=== PATIENT | female | born 1945 | race Caucasian/White ===

== ENCOUNTER 2021-04-14 17:55 | Emergency (ER) | payer MEDICARE, SELFPAY ==
--- NOTE | ~2021-04-14 | CT_ITS ---
EXAMINATION: CT pelvis w con DATE: 04/14/2021 20:56 INDICATION: Left groin pain TECHNIQUE: Computed tomography (CT) of the pelvis was performed with 100 cc Omnipaque 350 intravenous contrast. Automated exposure control and iterative reconstruction technique were employed. Exam dose : 583.38 mGy-cm total exam DLP. COMPARISON: None FINDINGS: There is a small fat-containing umbilical hernia. There are multiple diverticula of the sigmoid and descending colon; no CT evidence of diverticulitis. No bowel obstruction or intraperitoneal free air is evident. The urinary bladder is unremarkable. Status post hysterectomy. No pelvic mass lesion or lymphadenopathy or ascites. Moderately severe degenerative disc disease at L5-S1. No suspicious osteolytic or osteoblastic lesion s are noted. IMPRESSION: Diverticulosis; Status post hysterectomy Reviewed, dictated and finalized at [facility] Reviewed, dictated and finalized at [facility].
[2021-04-14 18:02] VITALS: BP 172/88; PULSE 88; RESP 16; TEMP 36.2; O2SAT 100
[2021-04-14 20:02] VITALS: BP 172/74; PULSE 66; RESP 16; O2SAT 100
--- NOTE | 2021-04-14 20:08 | ED.GENADULT ---
HPI - General Adult General Chief complaint: Abdominal Pain Stated complaint: Groin pain Time Seen by Provider: 04/14/21 19:57 Source: patient and RN notes reviewed History of Present Illness HPI narrative: Patient is a 76 y/o female complaining of left groin pain for 1 week. She describes her pain as throbbing and pulsating sensation. She rates her pain as 5/10. There is no pain radiation. She states that pain seems to get worse from sitting to standing. She did not notice any swelling or redness. Related Data Allergies Allergy/AdvReac Type Severity Reaction Status Date / Time MEPERIDINE HCL Allergy Mild PROJECTILE Uncoded 05/20/19 02:34 VOMITTING Review of Systems Constitutional: Constitutional: Denies chills, Denies fever(s), Denies headache(s) and Denies weakness Eyes: Eyes: Denies blurry vision ENT: Denies headache(s) and Denies neck pain Cardiovascular: Cardiovascular: Denies chest pain and Denies dyspnea Respiratory: Respiratory: Denies cough and Denies dyspnea Gastrointestinal: Gastrointestinal: Denies abdominal pain, Denies diarrhea, Denies nausea and Denies vomiting Genitourinary: Genitourinary: Denies hematuria and Denies dysuria Musculoskeletal: Musculoskeletal: Denies back pain, Denies neck pain and Reports other (left groin pain) Neurologic: Denies headache(s) and Denies weakness PMFSH Past Medical History Medical History GERD (gastroesophageal reflux disease) Hypertension Surgical History Surgical History H/O rectocele repair History of appendectomy History of arthroscopy of right knee History of hysterectomy History of tonsillectomy Social History Social History Smoking status: Former smoker Exam Const: General: no acute distress and well developed Orientation/consciousness: oriented to person, oriented to place, oriented to time and patient oriented x3 HENMT: Head: normocephalic Ears: external ears normal General nose exam: Normal external nose present Eyes: General: appearance normal, both eyes and all related structures Conjunctivae: conjunctivae normal Neck: Neck: normal visual inspection and full ROM Chest: Chest palpation & inspection: normal inspection of the chest and no tenderness Resp: Effort & Inspection: normal respiratory effort Auscultation: clear to auscultation bilaterally Cardio: Rate: regular rate Rhythm: regular rhythm GI: GI Palp: No abdominal tenderness and Yes Soft to palpation Skin: General skin exam: normal color and turgor normal Neuro: General: oriented to person, oriented to place, oriented to time and patient oriented x3 Cognition (Neuro): normal cognition Extrem: General: normal to inspection, full ROM and no pedal edema Psych: Appearance: grossly normal Mental Status: mental status grossly normal Affect: normal affect Course Vital Signs Vital signs: Vital Signs Temperature 36.2 C L 04/14/21 18:02 Pulse Rate 88 04/14/21 18:02 Respiratory Rate 16 04/14/21 18:02 Blood Pressure 172/88 H 04/14/21 18:02 Pulse Oximetry 100 04/14/21 18:02 Temperature 36.2 C L 04/14/21 18:02 Pulse Rate 72 04/14/21 21:36 Respiratory Rate 17 04/14/21 21:36 Blood Pressure 134/83 04/14/21 21:36 Pulse Oximetry 100 04/14/21 21:36 Medical Decision Making Vital Signs Vital Signs: Vital Signs Temperature 36.2 C L 04/14/21 18:02 Pulse Rate 88 04/14/21 18:02 Respiratory Rate 16 04/14/21 18:02 Blood Pressure 172/88 H 04/14/21 18:02 Pulse Oximetry 100 04/14/21 18:02 Temperature 36.2 C L 04/14/21 18:02 Pulse Rate 72 04/14/21 21:36 Respiratory Rate 17 04/14/21 21:36 Blood Pressure 134/83 04/14/21 21:36 Pulse Oximetry 100 04/14/21 21:36 Lab Data Result diagrams: 04/14/21 20:08 04/14/21 20:08 Labs: Lab
[2021-04-14 20:11] LABS: Add Urine Microscopic? YES; Appearance Urine Clear (Clear); Bilirubin Urine Negative (Negative); Blood Urine Negative (Negative); Color Urine Straw (Yellow); Glucose Urine UA Negative (Negative); Ketones Urine Negative (Negative); Leukocyte Esterase Ur 1+ LEU/UL (Negative); Nitrate Urine Negative (Negative); Protein Urine Negative (Negative); Specific Grav Ur 1.013 (1.001-1.035); Squamous Epithelial Cell Urine Rare /hpf (Few); Urobilinogen Urine Negative mg/dL (<2.0)
[2021-04-14 20:13] LABS: Basophils Absolute Auto 0.1 K/mm3 (0.0-0.1); Basophils Percent Auto 1.1 % (0.2-1.2); Eosinophils Absolute Auto 0.1 K/mm3 (0-0.3); Eosinophils Percent Auto 0.8 % (0-4.4); Hematocrit 40.6 % (37.0-47.0); Hemoglobin 13.6 g/dL (12.0-15.0); Immature Granulocyte Absolute 0.01 K/mm3 (0.00-0.031); Immature Granulocyte Percent A 0.1 % (0-0.5); Lymphocytes Absolute Auto 2.39 K/mm3 (0.9-3.2); Lymphocytes Percent Auto 28.8 % (18.3-44.2); Mean Corpuscular HGB Conc 33.5 g/dl (32-36); Mean Corpuscular Hemoglobin 34.1 pg (26-34); Mean Corpuscular Volume 101.8 fl (80-100); Mean Platelet Volume 9.6 fl (7.4-10.4); Monocytes Absolute Auto 0.7 K/mm3 (0.1-0.6); Monocytes Percent Auto 8.5 % (2.6-8.5); Neutrophils Percent Auto 60.7 % (45.5-73.1); Platelet Count Result 254 k/mm3 (150-375); Red Blood Count 3.99 M/mm3 (4.2-5.4); Red Cell Distribution Width 12.7 % (11.5-14.5); White Blood Count 8.3 K/mm3 (4.5-10.0)
[2021-04-14 20:26] LABS: Alanine Aminotransferase 23 U/L (4-35); Albumin Level 4.7 g/dL (3.5-5.1); Alkaline Phosphatase 78 U/L (38-126); Anion Gap 7 mmol/L (8-16); Aspartate Amino Transferase 32 U/L (14-36); Bilirubin,Total 0.4 mg/dL (0.2-1.3); Blood Urea Nitrogen 17 mg/dL (7-17); Calcium 10.1 mg/dL (8.4-10.2); Carbon Dioxide 27 mmol/L (22-30); Chloride 106 mmol/L (98-107); Estimated CRCL calculation 36 ml/min; Estimated Glomerular Filt Rate 54; Glucose 96 mg/dL (65-110); Lipase 118 U/L (23-300); Potassium 4.3 mmol/L (3.4-5.0); Sodium 140 mmol/L (137-145)
[2021-04-14 21:36] VITALS: BP 134/83; PULSE 72; RESP 17; O2SAT 100
== END 2021-04-14 21:37 | disposition home or self-care (01) ==
PROVIDERS: Emergency Provider Emergency Medicine
DX: S39.011A Strain of muscle, fascia and tendon of abdomen, initial encounter (principal); X58.XXXA Exposure to other specified factors, initial encounter
CPT/HCPCS: 36415; 72193; 80053; 81001; 83690; 85025; 99284; Q9967

== ENCOUNTER → 2022-06-30 14:25 | Outpatient (CLI) | payer MEDICARE, SELFPAY ==
--- NOTE | ~2022-06-30 | XR_ITS ---
EXAMINATION: XR ankle LT min 3V DATE: 06/30/2022 14:41 INDICATION: Left ankle pain and swelling. TECHNIQUE: 4 views of left ankle were obtained. COMPARISON: None. FINDINGS: Bone alignment is normal. No fracture. There is mild midfoot osteoarthritis. There are enth esophytes at the posterior and plantar aspects of calcaneal tuberosity. Ankle soft tissue swelling is noted. IMPRESSION: 1. Mild midfoot osteoarthritis. Reviewed, dictated and finalized at [facility]
== END ==
DX: R22.42 Localized swelling, mass and lump, left lower limb (principal); M19.072 Primary osteoarthritis, left ankle and foot
CPT/HCPCS: 73610

== ENCOUNTER → 2022-07-06 12:49 | Outpatient (CLI) | payer MEDICARE, SELFPAY ==
--- NOTE | ~2022-07-06 | MR_ITS ---
MRI of the left ankle Clinical history: Pain and swelling Technique: Coronal proton-density and proton-density fat-sat images, axial proton-density and proton- density fat-sat images, and sagittal proton-density and proton-density fat-sat images were acquired. Findings: Syndesmotic ligaments are intact. Anterior and posterior talofibular ligaments, and calcane ofibular ligament are intact. Deltoid ligament is somewhat poorly delineated, likely intact, with a c hronic avulsion fracture fragment or secondary ossification center at the tip of the medial malleolus . Medial flexor tendons, peroneal tendons, anterior extensor tendons, and Achilles tendon are intact. T here is mild tenosynovitis of the tibialis posterior and flexor digitorum longus tendon sheaths. There is mild amorphous marrow edema at the lateral aspect of the talar body, nonspecific. Remaining bone marrow signals are unremarkable. No fracture identified. Joint spaces are preserved without sign ificant erosive or degenerative change. There is diffuse subcutaneous soft tissue edema about the ankle. There is small amount of fluid in si nus Tarsi. Plantar fascia is intact. No soft tissue mass evident. Impression: Diffuse subcutaneous soft tissue edema about the ankle, nonspecific. Mild tenosynovitis of the tibialis posterior and flexor digitorum longus tendon sheaths. Amorphous mild marrow edema of the lateral talar body, which could reflect bone contusion or stress r esponse. Reviewed, dictated and finalized at [facility]. D REPRESENTATIVES DIRECTOR Impression: Diffuse subcutaneous soft tissue edema about the ankle, nonspecific. Mild tenosynovitis of the tibialis posterior and flexor digitorum longus tendon sheaths. Amorphous mild marrow edema of the lateral talar body, which could reflect bone contusion or stress response.
== END ==
DX: R60.9 Edema, unspecified (principal); M65.872 Other synovitis and tenosynovitis, left ankle and foot; M25.572 Pain in left ankle and joints of left foot
CPT/HCPCS: 73721